=== PATIENT | female | born 1995 | race African-American/Black ===

== ENCOUNTER 2018-06-18 05:54 | Inpatient (IN) ==
[2018-06-18] MEDS ORDERED: MEPERIDINE 50 MG/1 ML VIAL IV PRN (06:04)
[2018-06-18] MEDS ORDERED: LACTATED RINGERS 250 ML IV ONE (06:04)
[2018-06-18] MEDS ORDERED: BUTORPHANOL 2 MG/ML VIAL IV PRN (06:04)
[2018-06-18] MEDS ORDERED: ONDANSETRON 4 MG/2 ML VIAL IV PRN ×2 (06:04→21:20)
[2018-06-18] MEDS: LACTATED RINGERS 1,000 ML IV SCH ×3 (06:35→18:21)
[2018-06-18 06:37] LABS: Basophils % 0.2 % (0.0-0.8); Eosinophils % 0.5 % (0.00-10.9); Hematocrit 34.6 VOL% (35.7-47.0); Hemoglobin 10.6 GM/DL (12.0-16.0); Immature Granulocytes % 0.7 %; Immature Granulocytes Absolute 0.06 #; Lymphocytes # 2.2 10*3/uL (1.4-4.0); Lymphocytes % 26.4 % (21.3-54.2); Mean Corpuscular HGB Conc 30.6 GM/DL (32-36); Mean Corpuscular Hemoglobin 19 PG (27-34); Mean Corpuscular Volume 62.5 FL (87-102); Mean Platelet Volume 11.1 FL (9.6-12.0); Monocytes # 0.6 10*3/uL (0.11-0.8); Monocytes % 6.8 % (1.7-12.7); NRBC # 0.03 10*3/uL; Neutrophils # 5.5 10*3/uL (1.4-7.4); Neutrophils % 65.4 % (38.7-73.9); Platelet Count 427 T/CUMM (130-400); Red Blood Count 5.54 MC/CUMM (3.8-5.5); Red Cell Distribution Width 19.3 % (9.3-17.3); White Blood Count 8.5 T/CUMM (4-12)
[2018-06-18 06:55] LABS: Hypochromasia 1+; Ovalocytes Slight; Platelet Estimate Adequate
[2018-06-18 06:59] LABS: Albumin 2.2 G/DL (3.4-5.0); Bilirubin,Total 0.4 MG/DL (0.2-1.0); Calcium 8.9 MG/DL (8.5-10.1); Osmolality,Calculated 273.5 MOS/KG (273-304); Total Protein 7.2 G/DL (6.4-8.3)
[2018-06-18] MEDS: OXYTOCIN/LR 20 UNIT/1,000 ML BAG IV SCH (07:28)
[2018-06-18] MEDS ORDERED: ONDANSETRON 4 MG/2 ML VIAL IV ONE (11:24)
[2018-06-18] MEDS ORDERED: PROMETHAZINE 25 MG/1 ML VIAL IM ONE (11:24)
[2018-06-18] MEDS ORDERED: diphenhydrAMINE 50 MG/1 ML VIAL IV PRN ×2 (11:24)
[2018-06-18] MEDS ORDERED: FAMOTIDINE 20 MG/2 ML VIAL IV ONE (11:24)
[2018-06-18] MEDS ORDERED: NALOXONE 0.4 MG/ML VIAL IV PRN (11:24)
[2018-06-18] MEDS ORDERED: CITRIC ACID/SODIUM CITRATE 30 ML UDCUP PO ONE (11:24)
[2018-06-18] MEDS ORDERED: ePHEDrine 50 MG/ML AMP IV PRN (11:24)
[2018-06-18] MEDS ORDERED: LACTATED RINGERS 1,000 ML IV ONE (11:24)
[2018-06-18] MEDS ORDERED: hydrOXYzine HCL 25 MG/1 ML VIAL IM PRN (11:24)
[2018-06-18] MEDS ORDERED: fentaNYL 2 MCG/ROPIV 0.2% EPID 100 ML EPIDURAL SCH (11:30)
[2018-06-18 15:54] LABS: Apearance,Urine CLEAR (Clear); Bilirubin,Urine Negative (Negative); Blood, Urine Negative (Negative); Glucose,Urine (UA) Negative (Negative); Ketones,Urine 20 mg/dL (Negative); Mucus,Urine Occasional /LPF (Occasional); Nitrite,Urine Negative (Negative); Protein,Urine Negative; RBC,Urine <1 /HPF (0-4); Squamous Epithelial Cell,Urine Occasional /HPF (0-10); Urine Color Yellow (Yellow); Urine Specific Gravity 1.014 (1.001-1.035); Urine Urobilinogen < 2.0 EU/DL (0.2-1.0); WBC,Urine 1 /HPF (0-6)
[2018-06-18] MEDS ORDERED: ceFAZolin 3,000 MG in SYRINGE 1 EACH IV ONE (19:45)
[2018-06-18] MEDS ORDERED: miSOPROStol 200 MCG TABLET ONE (19:55)
[2018-06-18] MEDS ORDERED: METHYLERGONOVINE 0.2 MG/1 ML AMP ONE (19:56)
[2018-06-18] MEDS ORDERED: LIDOCAINE MPF 2% /EPI 20 ML VIAL ONE (19:59)
[2018-06-18] MEDS ORDERED: MEPERIDINE 25 MG/1 ML VIAL ONE (20:38)
[2018-06-18] MEDS ORDERED: RHO(D) IMMUNE GLOBULIN 300 MCG SYRINGE IM ONE (21:20)
[2018-06-18] MEDS ORDERED: ACETAMINOPHEN 325 MG TABLET PO PRN (21:20)
[2018-06-18] MEDS ORDERED: OXYTOCIN/LR 20 UNIT/1,000 ML BAG IV ONE (21:20)
[2018-06-18] MEDS ORDERED: MORPHINE 10 MG/10 ML VIAL ONE (21:26)
[2018-06-18] MEDS ORDERED: MIDAZOLAM 2 MG/2 ML VIAL ONE (21:27)
[2018-06-18] MEDS ORDERED: PROPOFOL 200 MG/20 ML VIAL IV ONE (21:28)
[2018-06-18] MEDS ORDERED: PHENYLEPHRINE 1 MG/10 ML SYRINGE IV ONE (21:28)
[2018-06-18] MEDS ORDERED: LACTATED RINGERS 1,000 ML IV SCH (21:30)
[2018-06-19] MEDS: IBUPROFEN 800 MG TABLET PO PRN ×2 (01:27→23:01)
[2018-06-19] MEDS ORDERED: ALBUTEROL/IPRATROPIUM 3 ML NEB RESP TX ONE (02:43)
[2018-06-19] MEDS ORDERED: ALBUTEROL/IPRATROPIUM 3 ML NEB RESP TX STA (02:46)
[2018-06-19] MEDS ORDERED: ACETAMINOPHEN 500 MG TABLET PO ONE (03:42)
[2018-06-19] MEDS: ceFAZolin 1,000 MG in SYRINGE 1 EACH IV SCH ×2 (04:20→13:04)
[2018-06-19 05:31] LABS: Basophils % 0.4 % (0.0-0.8); Eosinophils % 0.1 % (0.00-10.9); Hematocrit 27.9 VOL% (35.7-47.0); Hemoglobin 8.6 GM/DL (12.0-16.0); Immature Granulocytes % 0.7 %; Immature Granulocytes Absolute 0.08 #; Lymphocytes # 1.7 10*3/uL (1.4-4.0); Lymphocytes % 15.3 % (21.3-54.2); Mean Corpuscular HGB Conc 30.8 GM/DL (32-36); Mean Corpuscular Hemoglobin 19 PG (27-34); Mean Corpuscular Volume 62.6 FL (87-102); Mean Platelet Volume 10.5 FL (9.6-12.0); Monocytes # 0.7 10*3/uL (0.11-0.8); NRBC # 0.02 10*3/uL; Neutrophils # 8.7 10*3/uL (1.4-7.4); Neutrophils % 77.5 % (38.7-73.9); Platelet Count 298 T/CUMM (130-400); Red Blood Count 4.46 MC/CUMM (3.8-5.5); Red Cell Distribution Width 17.9 % (9.3-17.3); White Blood Count 11.2 T/CUMM (4-12)
[2018-06-19 05:52] LABS: Hypochromasia 1+; Ovalocytes Slight; Platelet Estimate Adequate
[2018-06-19] MEDS: MULTIVITAMIN (PRENATAL) TABLET PO SCH (08:29)
[2018-06-19] MEDS: DOCUSATE SODIUM 100 MG CAPSULE PO SCH ×2 (08:33→21:11)
[2018-06-19] MEDS: MAGNESIUM HYDROXIDE SUSP 30 ML UDCUP PO PRN ×2 (08:33→21:11)
[2018-06-19] MEDS: SIMETHICONE CHEW 80 MG TABLET PO PRN (08:33)
[2018-06-19] MEDS ORDERED: INFLUENZA VIRUS VACCINE 0.5 ML SYRINGE IM ONE (09:00)
[2018-06-19] MEDS ORDERED: diphenhydrAMINE CAP 50 MG CAPSULE ONE (11:35)
[2018-06-19] MEDS: diphenhydrAMINE CAP 50 MG CAPSULE PO PRN ×2 (11:35→16:13)
[2018-06-19] MEDS ORDERED: hydrOXYzine HCL 25 MG TABLET PO PRN (13:01)
[2018-06-19] MEDS: oxyCODONE/ACETAMINOPHEN 5-325 MG TABLET PO PRN (23:01)
[2018-06-20] MEDS: oxyCODONE/ACETAMINOPHEN 5-325 MG TABLET PO PRN (08:56)
[2018-06-20] MEDS: SIMETHICONE CHEW 80 MG TABLET PO PRN (08:56)
[2018-06-20] MEDS: FERROUS SULFATE 325 MG TABLET PO SCH ×2 (08:56→21:33)
[2018-06-20] MEDS: DOCUSATE SODIUM 100 MG CAPSULE PO SCH ×2 (08:56→21:33)
[2018-06-20] MEDS: MULTIVITAMIN (PRENATAL) TABLET PO SCH (08:56)
[2018-06-20] MEDS: MAGNESIUM HYDROXIDE SUSP 30 ML UDCUP PO PRN (08:56)
[2018-06-20] MEDS: FUROSEMIDE 20 MG TABLET PO SCH (09:11)
[2018-06-20] MEDS: IBUPROFEN 800 MG TABLET PO PRN (14:45)
[2018-06-20] MEDS: OXYTOCIN/LR 20 UNIT/1,000 ML BAG IV SCH (21:37)
[2018-06-21] MEDS: oxyCODONE/ACETAMINOPHEN 5-325 MG TABLET PO PRN (06:19)
[2018-06-21] MEDS: IBUPROFEN 800 MG TABLET PO PRN (06:19)
[2018-06-21 07:45] VITALS: BP 114/73
[2018-06-21] MEDS: FERROUS SULFATE 325 MG TABLET PO SCH (09:27)
[2018-06-21] MEDS: MULTIVITAMIN (PRENATAL) TABLET PO SCH (09:27)
[2018-06-21] MEDS: FUROSEMIDE 20 MG TABLET PO SCH (09:27)
[2018-06-21] MEDS: SIMETHICONE CHEW 80 MG TABLET PO PRN (09:27)
[2018-06-21] MEDS: DOCUSATE SODIUM 100 MG CAPSULE PO SCH (09:28)
[2018-06-21] MEDS ORDERED: DIPH/TET/ACEL PERT BOOSTER VACCINE 0.5 ML VIAL IM ONE (10:28)
== END 2018-06-21 12:20 | disposition home or self-care (01) | DRG 540 ==
LOC: N.LDOUT 05:54 → N.LD 05:56 → N.OB 23:44
PROVIDERS: ADMIT Obstetrics & Gynecology; ATTEND Obstetrics & Gynecology
PROC: LDCSECT (ICD-10-PCS; 2018-06-18 19:30)